=== PATIENT | female | born 1975 | race Caucasian/White ===

== ENCOUNTER 2016-10-31 07:23 | Emergency (ER) | payer OTHER ==
[~2016-10-31] VITALS: Ht 165.1 cm; Wt 77.1 kg
[2016-10-31 09:36] VITALS: BP 136/89
== END 2016-10-31 09:37 | disposition home or self-care (01) ==
LOC: ER 07:28
DX: F41.9 Anxiety disorder, unspecified (principal); F17.200 Nicotine dependence, unspecified, uncomplicated
CPT/HCPCS: 71010-TC; 84703-TC; A4606; Z7610